=== PATIENT | female | born 1980 | race Hispanic/Latino ===

== ENCOUNTER 2017-09-24 22:32 | Outpatient (CLI) | payer MEDICAID ==
[2017-09-24 22:47] VITALS: BP 115/63
[2017-09-24] MEDS ORDERED: LACTATED RINGERS 500 ML IV ONE (22:58)
[2017-09-25 00:05] LABS: Urine Drugs of Abuse Note Disclamer
[2017-09-25 00:24] LABS: Bilirubin,Urine NEG (Negative); Blood,Urine NEG (Negative); Ketones,Urine NEG (Negative); Leukocyte Esterase,Urine NEG (Negative); Mucus,Urine 2+ /HPF; Nitrite,Urine NEG (Negative); Protein,Urine <15 mg/dL mg/dL (Negative)
--- NOTE | 2017-09-25 10:30 | Ultrasound Report ---
ULTRASOUND OB LIMITED History: Premature labor Technique: Transabdominal ultrasound with Doppler interrogation. Gestation: Single Position: Cephalic Amniotic Fluid: Normal LOGAN = 8.1 cm Placenta: Posterior Placental Grade: 1 Heart Rate: 137 BPM Cervical length: Obscured cm (Normal > 3 cm)
== END 2017-09-25 | disposition home or self-care (01) ==
LOC: TRG 22:32
PROVIDERS: ATTEND Obstetrics & Gynecology
DX: O09.523 Supervision of elderly multigravida, third trimester (principal); O62.9 Abnormality of forces of labor, unspecified; Z3A.35 35 weeks gestation of pregnancy
CPT/HCPCS: 59025; 76815; 80307; 81001; J7120